=== PATIENT | male | born 1960 | race Caucasian/White ===

== ENCOUNTER 2021-09-01 09:27 | Observation (INO) | payer OTHER, SELFPAY ==
[2021-09-01] VITALS (11 sets, daily range): BP systolic 108–145; BP diastolic 67–99; PULSE 55–81; RESP 12–20; TEMP 35.9–36.4; O2SAT 96–98
--- NOTE | ~2021-09-01 | US_ITS ---
EXAMINATION: US carotid duplex BI DATE: 09/01/2021 16:58 INDICATION: TIA TECHNIQUE: Grayscale, color Doppler, and pulsed Doppler images of the cervical carotid arteries were obtained. The degree of vessel stenosis is placed in one of the following categories: normal, <50%, 5 0-69%, >=70% but less than near-occlusion, near-occlusion, or total occlusion. Note that percent sten osis relative to normal distal artery lumen diameter is indirectly measured from velocity measurement s as described by Cristobal, et al. Radiology 2003; 229:340-346. Notes: Normal: Peak systolic velocity <125 centimeters/sec and no plaque <50%. Peak systolic velocity <125 ( EDV <40; ICA/CCA PSV ratio <2.0; used these factors only a tandem lesions or low cardiac output or co ntralateral disease) 50-69 %: PSV 125-230 (EDV 40-100; ratio 2-4) >= 70% but less than near occlusion: PSV greater than 230 (EDV > 100; ratio> 4.0) Near Occlusion: PSV that is variable; markedly narrowed lumen Occlusion: Absent flow on color/spectral Doppler and no lumen on keller scale. COMPARISON: None. FINDINGS: RIGHT: The right common carotid artery (CCA) peak systolic velocity (PSV) is 72 cm/s. The right internal car otid artery (ICA) PSV is 76 cm/s. The right ICA end-diastolic velocity (EDV) is 24 cm/s. The right IC A/CCA PSV ratio is 1.1. The external carotid artery (ECA) PSV is 91 cm/s. There is antegrade flow in the right vertebral artery. LEFT: The left CCA PSV is 66 cm/s. The left ICA PSV is 70 cm/s. The left ICA EDV is 25 cm/s. The left ICA/C CA PSV ratio is 1.1. The ECA PSV is 89 cm/s. There is antegrade flow in the left vertebral artery. IMPRESSION: 1. Less than 50% stenosis in the right internal carotid artery by sonographic criteria. 2. Less than 50% stenosis in the left internal carotid artery by sonographic criteria. Reviewed, dictated and finalized at location A. IMPRESSION: 1. Less than 50% stenosis in the right internal carotid artery by sonographic mary menard. 2. Less than 50% stenosis in the left internal carotid artery by sonographic sarina fuller.
--- NOTE | ~2021-09-01 | CT_ITS ---
EXAMINATION: CT brain wo con INDICATION: Altered mental status, confusion COMPARISON: None TECHNIQUE: Standard unenhanced head CT. The dose-length product (DLP) was 605.33 mGy-cm. The mA was a djusted according to patient size. Iterative reconstruction technique was employed. FINDINGS: There is no acute intraparenchymal hemorrhage. No evidence of mass lesion. No evidence of a cute infarction. There is mild periventricular and subcortical hypodensity probably related to small vessel ischemic disease. There is mild prominence of the sulci and ventricles related to cerebral atr ophy. Intracranial calcified cerebral atherosclerosis is noted. There are no extra-axial collections. There is no mass effect or midline shift. The orbits and soft tissues are unremarkable. The visualiz ed sinuses and mastoid air cells are well aerated. IMPRESSION: 1. No acute intracranial abnormality. 2. Age related findings. Reviewed, dictated and finalized at location B.
--- NOTE | ~2021-09-01 | MR_ITS ---
EXAMINATION: MR brain/brain stem wo con DATE: 09/01/2021 16:49 CDT INDICATION: Slurred speech TECHNIQUE: Magnetic resonance imaging (MRI) of the brain and brainstem was performed without intraven ous contrast. Sequences included sagittal and axial T1-weighted SE, axial diffusion-weighted FS SE, a xial T2*-weighted GRE, axial T2-weighted FLAIR Propeller, and axial T2-weighted Propeller. Apparent d iffusion coefficient (ADC) maps were created. COMPARISON: CT brain dated 09/01/2021 and ultrasound carotid dated 09/01/2021 FINDINGS: The brain volume and ventricular system are within normal limits. The brain parenchymal si gnal intensity pattern and keller/white matter is normal and there is no evidence of hemorrhage, space occupying masses or infarctions. The flow signal voids of the major arterial structures about the [place] and within the ezequiel r dural venous sinuses appear grossly unremarkable and patent. The seventh and eighth cranial nerve complexes are normal. The mid sagittal image demonstrates a normal craniovertebral junction and [place] us callosum. The paranasal sinuses are grossly unremarkable. IMPRESSION: 1: No acute intracranial abnormality. Reviewed, dictated and finalized at location A.
--- NOTE | ~2021-09-01 | XR_ITS ---
EXAMINATION: XR chest 1V portable INDICATION: Altered mental status TECHNIQUE: Portable AP chest at 0955 hours COMPARISON: None available FINDINGS: The lungs are free of acute opacities. No pleural effusion or pneumothorax. The cardiomedia stinal silhouette is normal. IMPRESSION: 1. No acute cardiopulmonary abnormality. Reviewed, dictated and finalized at location B.
--- NOTE | 2021-09-01 09:32 | ECG_ITS ---
Measurements Intervals [place] Rate: 83 P: 42 OR: 158 QRS: -36 QRSD: 117 T: 34 QT: 377 QTc: 445 Interpretive Statements SINUS RHYTHM LEFT AXIS DEVIATION INCOMPLETE RIGHT BUNDLE BRANCH BLOCK BORDERLINE ECG Electronically Signed On 09-01-2021 10:53:12 CDT by Jack Ardon D.O.
[2021-09-01 09:54] LABS: Glucose Point of Care 123 mg/dl (65-105)
[2021-09-01 10:01] LABS: Basophils Absolute Auto 0.1 K/mm3 (0.0-0.1); Basophils Percent Auto 0.5 % (0.2-1.2); Eosinophils Absolute Auto 0.2 K/mm3 (0-0.3); Eosinophils Percent Auto 1.7 % (0-4.4); Hematocrit 41.5 % (42.0-52.0); Hemoglobin 14.2 g/dL (14.0-18.0); Immature Granulocyte Absolute 0.04 K/mm3 (0.00-0.031); Immature Granulocyte Percent A 0.4 % (0-0.5); Lymphocytes Absolute Auto 4.09 K/mm3 (0.9-3.2); Lymphocytes Percent Auto 39.4 % (18.3-44.2); Mean Corpuscular HGB Conc 34.2 g/dl (32-36); Mean Corpuscular Hemoglobin 30.7 pg (26-34); Mean Corpuscular Volume 89.8 fl (80-100); Mean Platelet Volume 9.6 fl (7.4-10.4); Monocytes Absolute Auto 0.9 K/mm3 (0.1-0.6); Monocytes Percent Auto 8.2 % (2.6-8.5); Neutrophils Absolute Auto 5.2 K/mm3 (1.3-6.7); Neutrophils Percent Auto 49.8 % (45.5-73.1); Platelet Count Result 260 k/mm3 (150-375); Red Blood Count 4.62 M/mm3 (4.6-6.20); Red Cell Distribution Width 13.5 % (11.5-14.5); White Blood Count 10.4 K/mm3 (4.5-10.0)
[2021-09-01 10:12] LABS: Prothrombin Time 12.8 Seconds (11.1-14.7)
[2021-09-01 10:16] LABS: Alanine Aminotransferase 31 U/L (6-50); Albumin Level 3.9 g/dL (3.5-5.1); Alkaline Phosphatase 68 U/L (38-126); Anion Gap 11 mmol/L (8-16); Aspartate Amino Transferase 32 U/L (17-59); Bilirubin,Total 0.7 mg/dL (0.2-1.3); Blood Urea Nitrogen 16 mg/dL (9-20); Calcium 8.9 mg/dL (8.4-10.2); Carbon Dioxide 24 mmol/L (22-30); Chloride 104 mmol/L (98-107); Estimated CRCL calculation 109 ml/min; Estimated Glomerular Filt Rate > 60; Glucose 110 mg/dL (65-110); Magnesium 2.2 mg/dL (1.6-2.3); Potassium 3.3 mmol/L (3.4-5.0); Sodium 139 mmol/L (137-145)
[2021-09-01 10:27] LABS: Troponin I < 0.012 ng/mL (0.000-0.034)
[2021-09-01] MEDS: SODIUM CHLORIDE 0.9% IV 1,000 ML 999 ML IV CONT (10:34)
[2021-09-01 10:39] LABS: Alveolar/Arterial O2 Gradient 10.9 mmHg; Base Excess ABG 1.1 mEq/l (+/-2.0); Carboxyhemoglobin 0.3 % THb (0-2.0); Device ROOM AIR; Fractional Inspired Oxygen 21 %; HCO3 ABG 25.9 mEq/l (22.0-26.0); Methemoglobin ABG 0.1 %THb (0-1.5); Modified Allen's Test Pass; Oxygen Content ABG 19.6 %vol (16.0-22.0); Oxygen Saturation ABG 96.8 % (95.0-100.0); Oxyhemoglobin 95.8 % THb (90.0-100.0); PO2 ABG 88.5 mmHg (80.0-100.0); PO2 FiO2 Ratio Arterial Blood 4.21 %; Reduced Hemoglobin 3.8 %THb (0-5.0); Site Drawn RIGHT RADIAL; Total Hemoglobin 14.5 g/dL (12.0-18.0); pH ABG 7.408 (7.350-7.450)
--- NOTE | 2021-09-01 11:06 | ED.WEAKNESS ---
HPI - Weakness General Chief complaint: Weakness Stated complaint: slurred speech, dizzy, tired, lethargic Time Seen by Provider: 09/01/21 09:31 Source: RN notes reviewed History of Present Illness HPI Narrative: Patient presents emergency department for altered mental status. Patient is here currently with a coworker patient arrived to work this morning and was having slurred speech as well as being very lethargic and slow to respond. Patient states he last recalls being normal last night prior to going to bed he states that he remembers waking up approximately 4 in the morning and was feeling very tired and hard to get around. Patient states that he does have a history of some new psychiatric medications he recently started as well as starting a Medrol Dosepak as well as Soma and lorazepam which he took this morning for history of chronic neck pain. He denies any recent illness he denies any headaches, fevers, chest pain shortness of breath abdominal pain nausea vomiting or any other symptoms denies any numbness or tingling of the extremities Related Data Allergies Allergy/AdvReac Type Severity Reaction Status Date / Time No Known Allergies Allergy Verified 09/01/21 09:46 Review of Systems Review of Systems: Gen.: Denies fevers or chills Eyes: Denies eye pain or visual change ENT: Denies congestion Respiratory: Denies shortness of breath or cough CV: Denies chest pain or palpitations GI: Denies abdominal pain nausea, emesis or diarrhea Musculoskeletal: Denies back pain or muscle pain Neuro: See HPI Skin: Denies rash Except as documented, all other systems reviewed and negative [facility] Past Medical History Medical History (Updated 09/01/21 @ 11:54 by Terrance Martin DO) Depression Social History Social History (Updated 09/01/21 @ 11:52 by Terrance Martin DO) Smoking status: Never smoker Exam Narrative: APPEARANCE: No acute distress, nontoxic, resting in bed HEENT: Normocephalic, atraumatic, OMM, TMs clear bilaterally EYES: PERRL, EOMI NECK: Supple, nontender, full range of motion without pain, no meningismus RESPIRATORY: No respiratory distress, clear to auscultation bilaterally with no rhonchi wheezing or rales CARDIOVASCULAR: RRR s murmur ABDOMINAL: Soft, nontender, nondistended MUSCULOSKELETAL: Moves all extremities. No clubbing, cyanosis or edema. NEURO: A and O ?3, following commands, speech slurred, cranial nerves II through XII grossly intact,muscle strength 5 out of 5 bilateral upper and lower extremities SKIN:: Warm, dry. Normal Color PSYCHIATRIC: Normal affect/mood Course Course Emergency Course: Patient remains with slurred speech in the ER does appear mildly more awake suspect possible medication reaction secondary to Soma gabapentin and lorazepam will admit for observation Discussed Dr. Jim agrees with admission recommends consult with neurology Discussed with Dr. Rico agrees with consult Discussed with patient and family results of workup and diagnosis. Discussed need for admission. Patient and family understand and agree to current treatment plan Vital Signs Vital signs: Vital Signs Temperature 97.6 F 09/01/21 09:33 Pulse Rate 81 09/01/21 09:33 Respiratory Rate 19 09/01/21 09:33 Blood Pressure 145/80 H 09/01/21 09:33 Pulse Oximetry 97 09/01/21 09:33 Oxygen Delivery Room Air 09/01/21 09:33 Temperature 97.6 F 09/01/21 09:33 Pulse Rate 60 09/01/21 11:50 Respiratory Rate 12 09/01/21 11:50 Blood Pressure 137/78 09/01/21 11:50 Pulse Oximetry 96 09/01/21 11:50 Oxygen Delivery Room Air 09/01/21 09:33 MDM - Weakness Lab Data Result diagrams: 09/01/21 09:45 09/01/21 09:45 Labs: Lab Results 09/01/21 09/01/21 09/01/21 Range/Units 09:45 09:45 09:45 WBC 10.4 H (4.5-10.0) K/mm3 RBC 4.62 (4.6-6.20) M/mm3 Hgb 14.2 (14.0-18.0) g/dL Hct 41.5 L (42.0-52.0) % MCV 89.8 (80-100) fl
[2021-09-01 11:26] LABS: Appearance Urine Clear (Clear); Bilirubin Urine Negative (Negative); Blood Urine Negative (Negative); Color Urine Yellow (Yellow); Glucose Urine UA Negative (Negative); Ketones Urine Negative (Negative); Leukocyte Esterase Ur Negative LEU/UL (Negative); Nitrate Urine Negative (Negative); Protein Urine Negative (Negative); Urobilinogen Urine 0.2 mg/dL (<2.0); pH Urine 5.5 (5.0-9.0)
[2021-09-01 11:35] LABS: Amphetamine Screen Urine Negative (Negative); Barbiturate Screen Urine Negative (Negative); Benzodiazepines Screen Urine Negative (Negative); Cannabinoid Screen Urine Negative (Negative); Cocaine Screen Urine Negative (Negative); Methadone Screen Urine Negative (Negative); Opiate Screen Urine Negative (Negative); Phencyclidine Screen Urine Negative (Negative)
[2021-09-01 12:14] LABS: Add Urine Microscopic? NO
[2021-09-01 12:57] LABS: Reflex Lactic Acid Yes or No Add Lactic
[2021-09-01 13:25] LABS: Ethanol < 10 mg/dL (<10)
[2021-09-01 13:34] LABS: Lactic Acid 1.2 mmol/L (0.7-2.0)
--- NOTE | 2021-09-01 13:48 | ADMGEN ---
This patient, Evaristo Burciaga, was admitted to 2 Medical Room 240-. Patient/family oriented to hospital policies and general routines including ID bracelet, bed and alarms, visiting hours, pain management, procedures, bathroom and other care routines, personal items, smoking policy, room service/diet, and visiting hours. Information on how to activate the Rapid Response Team has been discussed. Patient/Family are encouraged to report perceived risks to care and to ask questions if they do not understand what they are told or what they should do.
[2021-09-01] MEDS: SODIUM CHLORIDE 0.9% IV 1,000 ML 75 ML IV CONT (14:20)
--- NOTE | 2021-09-01 14:55 | PM.IMHP ---
H&P: HPI History of Present Illness Date/Time: 09/01/21 14:55 Chief Complaint: slurrred speech Narrative: this is a 61-year-old male who presents to the ED with slurred speech and confusion that started since this morning. He was last well known last night when he went to bed. He woke up this morning was a feeling lower off but drove to work. While at work he was noted by his co-worker to have slurred speech and he also fell at work. He was then brought to ER for further evaluation. He denies any fever chills. He does report that he was started on new psychiatric medication along with med drawl Dosepak and Soma with lorazepam. He was recently had worsening of her chronic neck pain. Review of Systems Review of Systems: - CONSTITUTIONAL: Denies weight loss, fever and chills. - HEENT: Denies changes in vision and hearing - RESPIRATORY: Denies SOB and cough. - CV: Denies palpitations and CP. - GI: Denies abdominal pain, nausea, vomiting and diarrhea. - : Denies dysuria and urinary frequency. - MSK: Denies myalgia and joint pain. - SKIN: Denies rash and pruritus. - NEUROLOGICAL: Denies headache and syncope. - PSYCHIATRIC: Denies recent changes in mood. Denies anxiety and depression. [facility] Past Medical History Medical History (Updated 09/01/21 @ 11:54 by Terrance Martin DO) Depression Family History Family History (Updated 09/01/21 @ 14:02 by Temitope Antunez RN) Mother Elevated blood pressure reading Father Dementia Neuropathy Diabetes mellitus Social History Social History (Updated 09/01/21 @ 11:52 by Terrance Martin DO) Smoking status: Never smoker Spiritual care concerns: No Meds Home Medications and Allergies Home Medications Medication Instructions Recorded Confirmed Type baclofen 10 mg tablet 10 mg PO DAILY 09/01/21 09/01/21 History buspirone 15 mg tablet 15 mg PO DAILY 09/01/21 09/01/21 History carisoprodol 350 mg tablet 350 mg PO BID 09/01/21 09/01/21 History emtricitabine 200 mg-tenofovir 1 tablet PO DAILY 09/01/21 09/01/21 History disoproxil fumarate 300 mg tablet gabapentin 300 mg capsule 300 mg PO DAILY 09/01/21 09/01/21 History gabapentin 300 mg capsule 600 mg PO HS 09/01/21 09/01/21 History lorazepam 1 mg tablet 1 mg PO BID PRN Anxiety 09/01/21 09/01/21 History methylprednisolone 4 mg tablets in See Rx Instructions .Route .COMPLEX 09/01/21 09/01/21 History a dose pack pramipexole 1.5 mg tablet 1.5 mg PO BID 09/01/21 09/01/21 History quetiapine 50 mg tablet 50 mg PO HS 09/01/21 09/01/21 History vilazodone 40 mg tablet 40 mg PO DAILY 09/01/21 09/01/21 History Allergies Allergy/AdvReac Type Severity Reaction Status Date / Time No Known Allergies Allergy Verified 09/01/21 09:46 Vital Signs Vital Signs - 24 hr 09/01/21 09:33 09/01/21 10:34 09/01/21 09:54 Temperature 97.6 F Pulse Rate 81 63 74 Respiratory Rate 19 14 Blood Pressure 145/80 H Pulse Oximetry 97 97 Oxygen Delivery Room Air 09/01/21 10:36 09/01/21 11:50 09/01/21 13:20 Temperature Pulse Rate 64 60 64 Respiratory Rate 15 12 17 Blood Pressure 132/67 137/78 141/99 H Pulse Oximetry 97 96 98 Oxygen Delivery Exam Narrative: APPEARANCE:? No acute distress, nontoxic, resting in bed HEENT: Normocephalic, atraumatic, OMM, TMs clear bilaterally EYES: PERRL, EOMI NECK: Supple, nontender, full range of motion without pain, no neck rigidity RESPIRATORY: No respiratory distress, clear to auscultation bilaterally with no rhonchi wheezing or rales CARDIOVASCULAR: RRR s murmur ABDOMINAL: Soft, nontender, nondistended MUSCULOSKELETAL: Moves all extremities. No clubbing, cyanosis or edema. NEURO: A and O ?3, following commands, speech slurred, cranial nerves II through XII grossly intact,muscle strength 5 out of 5 bilateral upper and lower extremities SKIN:: Warm, dry. Normal Color PSYCHIATRIC: Normal affect/mood H&P: Results Labs Labs: Short CBC 0
[2021-09-01] MEDS: PRAMIPEXOLE 0.5 MG TABLET 1.5 MG PO (18:41)
[2021-09-01] MEDS: ASPIRIN 81 MG CHEWABLE TABLET 324 MG PO (18:42)
[2021-09-01] MEDS: GABAPENTIN 300 MG CAPSULE 600 MG PO (20:27)
[2021-09-01] MEDS: QUEtiapine FUMARATE 25 MG TABLET 50 MG PO (20:27)
[2021-09-02] VITALS: PULSE 52
[2021-09-02 03:16] VITALS: BP 129/70; PULSE 54; RESP 20; TEMP 36.2; O2SAT 99
[2021-09-02 04:00] VITALS: PULSE 55
[2021-09-02 05:18] LABS: Basophils Absolute Auto 0.1 K/mm3 (0.0-0.1); Basophils Percent Auto 0.5 % (0.2-1.2); Eosinophils Absolute Auto 0.3 K/mm3 (0-0.3); Eosinophils Percent Auto 2.8 % (0-4.4); Hematocrit 40.7 % (42.0-52.0); Hemoglobin 13.6 g/dL (14.0-18.0); Immature Granulocyte Absolute 0.06 K/mm3 (0.00-0.031); Immature Granulocyte Percent A 0.6 % (0-0.5); Lymphocytes Absolute Auto 3.85 K/mm3 (0.9-3.2); Lymphocytes Percent Auto 41.1 % (18.3-44.2); Mean Corpuscular HGB Conc 33.4 g/dl (32-36); Mean Corpuscular Hemoglobin 30.5 pg (26-34); Mean Corpuscular Volume 91.3 fl (80-100); Mean Platelet Volume 9.9 fl (7.4-10.4); Monocytes Absolute Auto 0.7 K/mm3 (0.1-0.6); Monocytes Percent Auto 7.2 % (2.6-8.5); Neutrophils Absolute Auto 4.5 K/mm3 (1.3-6.7); Neutrophils Percent Auto 47.8 % (45.5-73.1); Platelet Count Result 257 k/mm3 (150-375); Red Blood Count 4.46 M/mm3 (4.6-6.20); Red Cell Distribution Width 13.4 % (11.5-14.5); White Blood Count 9.4 K/mm3 (4.5-10.0)
[2021-09-02 05:28] LABS: Alanine Aminotransferase 26 U/L (6-50); Albumin Level 3.5 g/dL (3.5-5.1); Alkaline Phosphatase 66 U/L (38-126); Anion Gap 6 mmol/L (8-16); Aspartate Amino Transferase 25 U/L (17-59); Bilirubin,Total 0.6 mg/dL (0.2-1.3); Blood Urea Nitrogen 14 mg/dL (9-20); Calcium 8.2 mg/dL (8.4-10.2); Carbon Dioxide 29 mmol/L (22-30); Chloride 104 mmol/L (98-107); Estimated CRCL calculation 109 ml/min; Estimated Glomerular Filt Rate > 60; Glucose 94 mg/dL (65-110); Potassium 3.8 mmol/L (3.4-5.0); Sodium 139 mmol/L (137-145)
[2021-09-02 08:00] VITALS: PULSE 72
[2021-09-02] MEDS: GABAPENTIN 300 MG CAPSULE PO (08:07)
[2021-09-02] MEDS: PRAMIPEXOLE 0.5 MG TABLET 1.5 MG PO (08:07)
[2021-09-02] MEDS: ASPIRIN 81 MG CHEWABLE TABLET PO (08:07)
--- NOTE | 2021-09-02 10:34 | WPDNEURCNPN ---
Assessment and Plan Additional Plan medications related change in the speech with negative CT and MRI of the brain normal carotid study Consult date: 09/02/21 Time Seen: 10:00 Reason for consult: slurred speech HPI: Evaristo Burciaga is a 61 year old male admitted to the hospital through the emergency room where he came with complaints of slurred speech with dizziness, lethargy and generalized tiredness, patient reportedly arrived to the work in the morning ,was noted to have slurred speech, lethargy and slow to respond though he remembered being normal last night and waking up approximately 4 in the morning very tired and hard to get around, recently he was started on Medrol Dosepak as well as Soma and lorazepam which he took in the morning for chronic neck pain, he gave no history of headache or any other generalized symptomatology, he was noted to be not allergic to any medication, he was never a smoker, an initial examination revealed him to have no focal neurological deficit along with normal vital signs, borderline potassium on the routine lab studies and negative CT scan of the head ,with normal x-ray chest ,toxicology screen was negative, initial CT scan of the head normal ,chest x-ray negative and brain MRI normal ,also the carotid Doppler study bilaterally negative ,his outpatient medications have included baclofen 10 mg daily, BuSpar 15 mg daily, Soma 350 mg twice a day,gabapentin 300 mg daily and 600 at night with lorazepam 1 mg b.i.d. pramipexole 1.5 mg b.i.d. Seroquel 50 mg HS and will also do not mg daily Review of Systems Review of Systems: All systems reviewed & are unremarkable except as noted in HPI and below PMFSH Past Medical History Medical History (Updated 09/01/21 @ 11:54 by Terrance Martin DO) Depression Family History Family History (Updated 09/01/21 @ 14:02 by Temitope Antunez RN) Mother Elevated blood pressure reading Father Dementia Neuropathy Diabetes mellitus Social History Social History (Updated 09/01/21 @ 11:52 by Terrance Martin DO) Smoking status: Never smoker Spiritual care concerns: No Meds Home Medications and Allergies Home Medications Medication Instructions Recorded Confirmed Type baclofen 10 mg tablet 10 mg PO DAILY 09/01/21 09/01/21 History buspirone 15 mg tablet 15 mg PO DAILY 09/01/21 09/01/21 History carisoprodol 350 mg tablet 350 mg PO BID 09/01/21 09/01/21 History emtricitabine 200 mg-tenofovir 1 tablet PO DAILY 09/01/21 09/01/21 History disoproxil fumarate 300 mg tablet gabapentin 300 mg capsule 300 mg PO DAILY 09/01/21 09/01/21 History gabapentin 300 mg capsule 600 mg PO HS 09/01/21 09/01/21 History lorazepam 1 mg tablet 1 mg PO BID PRN Anxiety 09/01/21 09/01/21 History methylprednisolone 4 mg tablets in See Rx Instructions .Route .COMPLEX 09/01/21 09/01/21 History a dose pack pramipexole 1.5 mg tablet 1.5 mg PO BID 09/01/21 09/01/21 History quetiapine 50 mg tablet 50 mg PO HS 09/01/21 09/01/21 History vilazodone 40 mg tablet 40 mg PO DAILY 09/01/21 09/01/21 History Allergies Allergy/AdvReac Type Severity Reaction Status Date / Time No Known Allergies Allergy Verified 09/01/21 09:46 Vital Signs Vital Signs - 24 hr 09/01/21 10:36 09/01/21 11:50 09/01/21 13:20 Temperature Pulse Rate 64 60 64 Respiratory Rate 15 12 17 Blood Pressure 132/67 137/78 141/99 H Pulse Oximetry 97 96 98 Oxygen Delivery 09/01/21 13:59 09/01/21 16:00 09/01/21 15:17 Temperature 35.9 C L Pulse Rate 55 L 57 L Respiratory Rate 16 Blood Pressure 112/69 Pulse Oximetry 98 97 Oxygen Delivery Room Air 09/01/21 19:48 09/01/21 20:00 09/02/21 00:00 Temperature 36.3 C L Pulse Rate 61 55 L 52 L Respiratory Rate 20 Blood Pressure 108/68 Pulse Oximetry 98 Oxygen Delivery 09/02/21 03:16 09/02/21 04:00 09/02/21 08:00 Temperature 36.2 C L Pulse Rate 54 L 55 L 72 Respiratory Rate 20 Blood Pressure 129/70 Puls
[2021-09-02] MEDS: EMTRICITABINE-TENOFOVIR 100 MG-150 MG TABLET 2 TAB PO (10:50)
--- NOTE | 2021-09-02 11:50 | PM.DS ---
DS: Admitting Diagnosis Discharge Date 09/02/2021 Admitting Diagnosis Slurred speech DS: Discharge Diagnosis Discharge Diagnosis (1) Acute alteration in mental status: Code(s): R41.82 - Altered mental status, unspecified Status: Acute (2) Slurred speech: Code(s): R47.81 - Slurred speech Status: Acute (3) Depression: Code(s): F32.A - Depression, unspecified Status: Acute Plan # Slurred speech last normal night prior to 08/24 09[address] head is negative. Recently started on multiple psychoactive medications. Likely related to that. Further evaluation for TIA versus stroke was done which came back negative. Brain was negative. Carotid ultrasound with less than 50% stenosis bilateral carotid. Cover with aspirin however will discontinue as stroke. Neurology was consulted suspect medication related. Drug screen was negative chest x-ray was normal. # Depression continue medication # DVT prophylaxis Lovenox # Hypokalemia replaced # Code status full code Patient's new psychoactive medication like Soma will be discontinued at discharge and he is suggested to follow up with PCP for further evaluation. DS: Summary Hospital Course Hospital Course: See above Time Spent with Patient Time attestation: Total time spent providing and/or coordinating discharge services: 40 minutes Exam Narrative: APPEARANCE:? No acute distress, nontoxic, resting in bed HEENT: Normocephalic, atraumatic, OMM, TMs clear bilaterally EYES: PERRL, EOMI NECK: Supple, nontender, full range of motion without pain, no neck rigidity RESPIRATORY: No respiratory distress, clear to auscultation bilaterally with no rhonchi wheezing or rales CARDIOVASCULAR: RRR s murmur ABDOMINAL: Soft, nontender, nondistended MUSCULOSKELETAL: Moves all extremities. No clubbing, cyanosis or edema. NEURO: A and O ?3, following commands, cranial II through XII grossly intact,muscle strength 5 out of 5 bilateral upper and lower extremities SKIN:: Warm, dry. Normal Color PSYCHIATRIC: Normal affect/mood DS: Data Data Completed and Pending Labs on day of discharge: Labs from last 24 hours 09/02/21 09/02/21 09/01/21 04:28 04:28 13:17 WBC 9.4 RBC 4.46 L Hgb 13.6 L Hct 40.7 L MCV 91.3 MCH 30.5 MCHC 33.4 RDW 13.4 Plt Count 257 MPV 9.9 Immature Gran % (Auto) 0.6 H Neut % (Auto) 47.8 Lymph % (Auto) 41.1 Ashley % (Auto) 7.2 Eos % (Auto) 2.8 Baso % (Auto) 0.5 Lymph # (Auto) 3.85 H Ashley # (Auto) 0.7 H Eos # (Auto) 0.3 Baso # (Auto) 0.1 Abs Immat Gran (auto) 0.06 H Absolute Neuts (auto) 4.5 Absolute Nucleated RBC 0.0 Nucleated RBC % 0.0 Sodium 139 Potassium 3.8 Chloride 104 Carbon Dioxide 29 Anion Gap 6 L BUN 14 Creatinine 0.80 Estim Creat Clear Calc 109 Estimated GFR > 60 Glucose 94 Lactic Acid 1.2 Calcium 8.2 L Total Bilirubin 0.6 AST 25 ALT 26 Alkaline Phosphatase 66 Total Protein 6.0 L Albumin 3.5 Urine Color Urine Appearance Urine pH Ur Specific [place] Urine Protein Urine Glucose (UA) Urine Ketones Ur Blood (Man) Urine Nitrate Urine Bilirubin Urine Urobilinogen Leukocyte Esterase Rfl Ethyl Alcohol 09/01/21 09/01/21 09:47 09:45 WBC RBC Hgb Hct MCV MCH MCHC RDW Plt Count MPV Immature Gran % (Auto) Neut % (Auto) Lymph % (Auto) Ashley % (Auto) Eos % (Auto) Baso % (Auto) Lymph # (Auto) Ashley # (Auto) Eos # (Auto) Baso # (Auto) Abs Immat Gran (auto) Absolute Neuts (auto) Absolute Nucleated RBC Nucleated RBC % Sodium Potassium Chloride Carbon Dioxide Anion Gap BUN Creatinine Estim Creat Clear Calc Estimated GFR Glucose Lactic Acid Calcium Total Bilirubin AST ALT Alkaline Phosphatase Total Protein Albumin Urine Color Yellow Urine Appearan
[2021-09-02 12:00] VITALS: PULSE 70
== END 2021-09-02 12:43 | disposition home or self-care (01) ==
LOC: ANHED 11:54 → ANH2MED 12:35
PROVIDERS: Admitting Provider Internal Medicine; Emergency Provider Emergency Medicine; Visit Provider Internal Medicine
DX: R41.82 Altered mental status, unspecified (principal); R47.81 Slurred speech; R53.83 Other fatigue; F32.A Depression, unspecified; R42 Dizziness and giddiness; E87.6 Hypokalemia; R29.701 NIHSS score 1; I45.10 Unspecified right bundle-branch block; M54.2 Cervicalgia; W19.XXXA Unspecified fall, initial encounter; Y92.89 Other specified places as the place of occurrence of the external cause; Y99.0 Civilian activity done for income or pay; Z79.52 Long term (current) use of systemic steroids; Z79.899 Other long term (current) drug therapy; Z83.3 Family history of diabetes mellitus
CPT/HCPCS: 36415; 36600; 70450; 70551; 71045; 80053; 80307; 81003; 82375; 82805; 82948; 83050; 83605; 83735; 84443; 84484; 85025; 85610; 85730; 93005; 93880; 96360; 99285; A9270; G0378; J7030